=== PATIENT | female | born 1950 | race Caucasian/White ===

== ENCOUNTER 2018-07-29 18:32 | Emergency (ER) | payer OTHER ==
[2018-07-29 20:31] LABS: Absolute Lymphocytes (CBC) 1.1 K/uL (0.7-4.9); Absolute Monocytes 0.9 K/uL (0.1-1.3); Absolute Neutrophil 5.3 K/uL (1.8-8.0); Basophils % 0.6 % (0-1.3); Eosinophils % 0.4 % (0-4.4); Hematocrit 33.1 % (36.0-45.0); Lymphocytes % 15.1 % (15.3-44.8); Monocytes % 12.3 % (3.3-12.3); RBC Red Blood Cell Count 3.55 M/uL (3.86-4.86)
[2018-07-29] MEDS ORDERED: NA CHLORIDE 0.9% 1,000 ML ONE (20:47)
[2018-07-29 20:49] LABS: Blood Morphology Comment NOT SEEN (NOT SEEN); Platelet Estimate DECR; Urine White Blood Cell Casts OK
--- NOTE | 2018-07-29 20:50 | RAD REPORT ---
EXAM DESCRIPTION: Kayla Single View07/29/2018 8:38 pm CLINICAL HISTORY: Chest pain COMPARISON: none FINDINGS: The lungs appear clear of acute infiltrate. The heart is normal size IMPRESSION: No acute abnormalities displayed
[2018-07-29 20:54] LABS: ALT/SGPT 31 U/L (12-78); AST/SGOT 23 U/L (15-37); Albumin 2.8 g/dL (3.4-5.0); Alkaline Phosphatase 76 U/L (45-117); BUN Blood Urea Nitrogen 14 mg/dL (7-18); Bicarbonate 30 mmol/L (21-32); Bilirubin Direct 0.2 mg/dL (0-0.2); Bilirubin Total 0.5 mg/dL (0.2-1.0); Glucose Level 144 mg/dL (74-106); Magnesium 2.3 mg/dL (1.8-2.4); NT PRO-BNP 163 pg/mL (<125); Potassium 4.4 mmol/L (3.5-5.1); Protein, Total 6.2 g/dL (6.4-8.2); Sodium Level 142 mmol/L (136-145); Troponin (Emerg Dept Use Only) < 0.02 ng/mL (0.0-0.045)
[2018-07-29 21:40] LABS: Protime INR 1.2
[2018-07-29 22:23] LABS: Urine Bacteria <20 /HPF (<20); Urine Culture Reflex Order REFLEXED; Urine RBC <5 /HPF (NONE SEEN)
--- NOTE | 2018-07-29 22:26 | ER ---
Nurse's Notes [facility] Name: Ana Tuttle Age: 68 yrs Sex: Female : 1950 Arrival Date: 07/29/2018 Time: 18:36 Bed 15 Private MD: Diagnosis: Weakness Presentation: 07/29 18:53 Presenting complaint: EMS states: syncopal episode at intermediate. Transition of care: ls4 patient was received from another setting of care (long-term care facility), [facility]. Onset of symptoms was July 29, 2018 at 17:00. Risk Assessment: Do you want to hurt yourself or someone else? Patient reports no desire to harm self or others. Initial Sepsis Screen: Does the patient meet any 2 criteria? No. Patient's initial sepsis screen is negative. Does the patient have a suspected source of infection? No. Patient's initial sepsis screen is negative. Care prior to arrival: Medication(s) given: NS IV initiated. 20 GA, in the left antecubital area. 18:53 Method Of Arrival: EMS: [facility] ls4 18:53 Acuity: SANTHOSH 3 ls4 Triage Assessment: 18:56 General: Appears in no apparent distress. Behavior is flat, fussy. Pain: Unable to use ls4 pain scale. Patient is disoriented. Historical: - Allergies: 18:56 No Known Allergies; ls4 - PMHx: 18:56 Dementia; Hypothyroidism; UTI; ls4 - Immunization history:: Adult Immunizations up to date. - Social history:: Smoking status: unknown. - Ebola Screening: : Patient negative for fever greater than or equal to 101.5 degrees Fahrenheit, and additional compatible Ebola Virus Disease symptoms Patient denies exposure to infectious person Patient denies travel to an Ebola-affected area in the 21 days before illness onset No symptoms or risks identified at this time. Screenin:03 Abuse screen: Denies threats or abuse. Denies injuries from another. Nutritional ls4 screening: No deficits noted. Tuberculosis screening: No symptoms or risk factors identified. Fall Risk No fall in past 12 months (0 pts). Secondary diagnosis (15 points) IV access (20 points). Ambulatory Aid- None/Bed Rest/Nurse Assist (0 pts). Gait- Normal/Bed Rest/Wheelchair (0 pts) Mental Status- Overestimates/Forgets Limitations (15 pts.). Total Francois Fall Scale indicates High Risk Score (45 or more points). Fall prevention measures have been instituted. Side Rails Up X 2 Placed Close to Nursing Station Frequent Obs/Assessments Occuring Family Present and informed to notify staff if the need to leave the bedside As available patient and family educated on Fall Prevention Program and Strategies. Assessment: 02:00 Reassessment: Patient appears in no apparent distress at this time. No changes from ls4 previously documented assessment. Patient and/or family updated on plan of care and expected duration. Pain level reassessed. 19:01 General: Appears in no apparent distress. Behavior is flat, fussy. Neuro: Oriented to ls4 person, Cardiovascular Physician Assistant are equal bilaterally Moves all extremities. Speech is normal, Facial symmetry appears normal, Pupils are PERRLA, Cardiovascular: Parent/caregiver reports patient has had syncope. Respiratory: Airway is patent Respiratory effort is even, unlabored, Respiratory pattern is regular. GI: Abdomen is non-distended, Bowel sounds present X 4 quads. Derm: Skin is pink, warm \T\ dry. Musculoskeletal: No deficits noted. 20:01 Reassessment: Patient appears in no apparent distress at this time. No changes from ls4 previously documented assessment. Patient and/or family updated on plan of care and expected duration. Pain level reassessed. 22:15 Reassessment: Patient appears in no apparent distress at this time. Patient and/or cc3 family updated on plan of care and expected duration. Pain level reassessed. Patient is alert, oriented x 3, equal unlabored respirations, skin warm/dry/pink. Received this female demented patient from morning shift JOSEP Brown as a case of weakness. With IV cannula gauge 20 at the left ACV saline locked. Patient denies pain at this time. 23:00 Reassessment: Patient appears in no apparent distress at this time. Patient and/or cc3 family updated on plan of care and expected duration. Pain level reassessed. Patient is alert, oriented x 3, equal unlabored respirations, skin warm/dry/pink. Dr. Delcid discharged the patient home, no prescription given. IV cannula removed and patient left ER vitally stable by wheelchair escorted by [facility] Chago and the patient's [id number]. The [id number] said she'll bring the patient back to the intermediate. Patient denies pain at this time. Patient states feeling better. Vital Signs: 18:58 BP 160 / 72; Pulse 52; Resp 16; Temp 98.4; Pulse Ox 96% on R/A; Weight 73.48 kg (M); ls4 Height 5 ft. 1 in. (154.94 cm); Pain 0/10; 20:00 Pulse 53; Resp 11; Pulse Ox 99% on R/A; Pain 0/10; ls4 21:02 BP 138 / 70; Pulse 51; Resp 12; Pulse Ox 98% on R/A; Pain 0/10; ls4 22:45 BP 154 / 72; Pulse 52; Resp 14 S; Temp 98.5(O); Pulse Ox 96% on R/A; cc3 18:58 Body Mass Index 30.61 (73.48 kg, 154.94 cm) ls4 ED Course: 18:36 Patient arrived in ED. ss 18:53 Stephanie Green, RN is Primary Nurse. ls4 18:55 Triage completed. ls4 18:57 EKG done, by ED staff, reviewed by David Salas MD. jb1 18:58 Arm band placed on right wrist. EKG completed in triage. Results shown to MD. ls4 19:03 No provider procedures requiring assistance completed. Maintain EMS IV. Dressing ls4 intact. Good blood return noted. Site clean \T\ dry. Gauge \T\ site: 20 G LAC . Patient maintains SpO2 saturation greater than 95% on room air. 19:03 Patient has correct armband on for positive identification. Bed in low position. Call ls4 light in reach. Side rails up X2. Adult w/ patient. color television console monitor on. Pulse ox on. NIBP on. Warm blanket given. Verbal reassurance given. 19:25 Tad Delcid MD is Attending Physician. gs 20:39 XRAY Chest (1 view) In Process Unspecified. EDMS 23:00 IV discontinued, intact, bleeding controlled, No redness/swelling at site. Pressure cc3 dressing applied. Administered Medications: 20:40 Drug: NS 0.9% 1000 ml Route: IV; Rate: 1 bolus; Site: left antecubital; ls4 Outcome: 22:25 Discharge ordered by . gs 23:00 Discharged to home via wheelchair, with family. cc3 23:00 Condition: stable 23:00 Discharge instructions given to family, Instructed on discharge instructions, follow up and referral plans. Demonstrated understanding of instructions, follow-up care. 23:07 Patient left the ED. cc3 Signatures: Dispatcher [employer] Ced Kirkland jb1 Erica Waller, JOSEP RN ss Tad Delcid MD MD gs Cordel, Charlene cc3 Stephanie Green RN RN ls4 Corrections: (The following items were deleted from the chart) 23:54 23:00 Reassessment: Patient appears in no apparent distress at this time. Patient cc3 and/or family updated on plan of care and expected duration. Pain level reassessed. Patient is alert, oriented x 3, equal unlabored respirations, skin warm/dry/pink. Dr. Delcid discharged the patient home, no prescription given. IV cannula removed and patient left ER vitally stable by wheelchair escorted by log data technician Chago and the patient's [id number]. Patient denies pain at this time. Patient states feeling better. cc3
--- NOTE | 2018-07-29 22:26 | EDPHYS ---
Physician Documentation [facility] Name: Ana Tuttle Age: 68 yrs Sex: Female : 1950 Arrival Date: 07/29/2018 Time: 18:36 Bed 15 Private MD: ED Physician Tad Delcid HPI: 07/30 00:50 This 68 yrs old Female presents to ER via EMS with complaints of general gs weakness. 00:50 The patient presents to the emergency department with weakness of the entire body, gs generalized weakness. 00:51 Onset: The symptoms/episode began/occurred yesterday. Associated signs and symptoms: gs Pertinent positives: syncope. Severity of symptoms: At their worst the symptoms were moderate in the emergency department the symptoms have resolved. Current symptoms: weak, no injury from syncope. The patient has experienced similar episodes in the past, several times. Historical: - Allergies: 07/29 18:56 No Known Allergies; ls4 - PMHx: 18:56 Dementia; Hypothyroidism; UTI; ls4 - Immunization history:: Adult Immunizations up to date. - Social history:: Smoking status: unknown. - Ebola Screening: : Patient negative for fever greater than or equal to 101.5 degrees Fahrenheit, and additional compatible Ebola Virus Disease symptoms Patient denies exposure to infectious person Patient denies travel to an Ebola-affected area in the 21 days before illness onset No symptoms or risks identified at this time. ROS: 07/30 00:51 All other systems are negative. gs Exam: 00:51 Head/Face: Normocephalic, atraumatic. Eyes: Pupils equal round and reactive to light, gs extra-ocular motions intact. Lids and lashes normal. Conjunctiva and sclera are non-icteric and not injected. Cornea within normal limits. Periorbital areas with no swelling, redness, or edema. ENT: Nares patent. No nasal discharge, no septal abnormalities noted. Tympanic membranes are normal and external auditory canals are clear. Oropharynx with no redness, swelling, or masses, exudates, or evidence of obstruction, uvula midline. Mucous membranes moist. Neck: Trachea midline, no thyromegaly or masses palpated, and no cervical lymphadenopathy. Supple, full range of motion without nuchal rigidity, or vertebral point tenderness. No Meningismus. Chest/axilla: Normal chest wall appearance and motion. Nontender with no deformity. No lesions are appreciated. Cardiovascular: Regular rate and rhythm with a normal S1 and S2. No gallops, murmurs, or rubs. Normal PMI, no JVD. No pulse deficits. Respiratory: Lungs have equal breath sounds bilaterally, clear to auscultation and percussion. No rales, rhonchi or wheezes noted. No increased work of breathing, no retractions or nasal flaring. Abdomen/GI: Soft, non-tender, with normal bowel sounds. No distension or tympany. No guarding or rebound. No evidence of tenderness throughout. Back: No spinal tenderness. No costovertebral tenderness. Full range of motion. Skin: Warm, dry with normal turgor. Normal color with no rashes, no lesions, and no evidence of cellulitis. MS/ Extremity: Pulses equal, no cyanosis. Neurovascular intact. Full, normal range of motion. 00:51 Constitutional: The patient appears alert, awake. 00:51 Neuro: Exam negative for acute changes, focal neuro deficits, motor deficits, sensory deficits. Vital Signs: 07/29 18:58 BP 160 / 72; Pulse 52; Resp 16; Temp 98.4; Pulse Ox 96% on R/A; Weight 73.48 kg (M); ls4 Height 5 ft. 1 in. (154.94 cm); Pain 0/10; 20:00 Pulse 53; Resp 11; Pulse Ox 99% on R/A; Pain 0/10; ls4 21:02 BP 138 / 70; Pulse 51; Resp 12; Pulse Ox 98% on R/A; Pain 0/10; ls4 22:45 BP 154 / 72; Pulse 52; Resp 14 S; Temp 98.5(O); Pulse Ox 96% on R/A; cc3 18:58 Body Mass Index 30.61 (73.48 kg, 154.94 cm) ls4 MDM: 19:58 Patient medically screened. gs 07/30 00:51 Data reviewed: vital signs, nurses notes, lab test result(s), EKG, radiologic studies. gs Response to treatment: the patient's symptoms have markedly improved after treatment, and as a result, I will discharge patient. ED course: family good with plan acknowledge back to baseline. 07/29 20:07 Order name: Basic Metabolic Panel; Complete Time: 22:21 07/29 20:07 Order name: CBC with Diff; Complete Time: : 07/29 20:07 Order name: LFT's; Complete Time: : 07/29 20:07 Order name: Magnesium; Complete Time: : 07/29 20:07 Order name: NT PRO-BNP; Complete Time: : 07/29 20:07 Order name: PT-INR; Complete Time: : 07/29 20:07 Order name: Troponin (emerg Dept Use Only); Complete Time: : 07/29 20:07 Order name: XRAY Chest (1 view); Complete Time: : 07/29 20:07 Order name: EKG; Complete Time: : 07/29 20:07 Order name: Cardiac monitoring; Complete Time: 20: 07/29 20:07 Order name: Urine Microscopic Only; Complete Time: : 07/29 20:49 Order name: CBC Smear Scan; Complete Time: : [facility] [place] 07/29 22:24 Order name: Urine Culture [facility] [place] 07/29 20:07 Order name: EKG - Nurse/Tech; Complete Time: 20: 07/29 20:07 Order name: IV Saline Lock; Complete Time: : 07/29 20:07 Order name: Labs collected and sent; Complete Time: 20:43 07/29 20:07 Order name: O2 Per Protocol; Complete Time: 20: 07/29 20:07 Order name: O2 Sat Monitoring; Complete Time: 20: 07/29 20:07 Order name: Urine Dipstick-Ancillary (obtain specimen); Complete Time: 21:19 Administered Medications: 07/29 20:40 Drug: NS 0.9% 1000 ml Route: IV; Rate: 1 bolus; Site: left antecubital; ls4 Disposition: 07/29/18 22:25 Discharged to Home. Impression: Weakness. - Condition is Stable. - Discharge Instructions: Weakness. - Medication Reconciliation Form, Thank You Letter, Antibiotic Education, Prescription Opioid Use form. - Follow up: Private Physician; When: 2 - 3 days; Reason: Re-evaluation by your physician. Signatures: Dispatcher [employer] Tad Stubbs MD MD gs Carmela Inman cc3 Stephanie Green RN RN ls4 Corrections: (The following items were deleted from the chart) 23:07 22:25 07/29/2018 22:25 Discharged to Home. Impression: Weakness. Condition is Stable. cc3 Forms are Medication Reconciliation Form, Thank You Letter, Antibiotic Education, Prescription Opioid Use. Follow up: Private Physician; When: 2 - 3 days; Reason: Re-evaluation by your physician. gs
--- NOTE | 2018-07-30 07:26 | EKG ---
Test Date: 2018-07-29 Test Time: 18:52:58 Bag Bundler: MYRIAM MEASUREMENT RESULTS: Intervals: Rate: 51 NM: 150 QRSD: 98 QT: 500 QTc: 460 Spurger: P: 25 NM: 150 QRS: -28 T: 15 INTERPRETIVE STATEMENTS: Sinus bradycardia Nonspecific ST abnormality Abnormal ECG Compared to ECG 05/24/1996 05:36:00 ST (T wave) deviation now present Electronically Signed On 07-30-18 07:25:32 CDT by Uvaldo Wilson
--- NOTE | 2018-07-30 07:27 | EKG ---
Test Date: 2018-07-29 Test Time: 20:39:04 Propagation Manager: MYRIAM MEASUREMENT RESULTS: Intervals: Rate: 48 CA: 160 QRSD: 100 QT: 492 QTc: 439 Manvel: P: 44 CA: 160 QRS: -31 T: 10 INTERPRETIVE STATEMENTS: Marked sinus bradycardia Left axis deviation Nonspecific ST and T wave abnormality Abnormal ECG Compared to ECG 07/29/2018 18:52:58 Left-axis deviation now present ST (T wave) deviation still present Electronically Signed On 07-30-18 07:25:41 CDT by Uvaldo Wilson
== END 2018-07-29 23:07 | disposition home or self-care (01) ==
LOC: ER 18:32
DX: R53.1 Weakness (principal); R55 Syncope and collapse
CPT/HCPCS: 93005 ×2; 87088; 85025; 87086; 80048; 36415; 83735; 85610; 80076; 81015; 84484; 83880; 71045; 99285; J7030